=== PATIENT | male | born 1985 | race Caucasian/White ===

== ENCOUNTER 2017-10-04 20:06 | Emergency (ER) | payer OTHER, SELFPAY ==
[2017-10-04 20:08] VITALS: BP 150/104; PULSE 93; RESP 17; TEMP 36.8; O2SAT 99; BMI 40.0
--- NOTE | 2017-10-04 22:00 | ED.VISSUMM ---
- ER Visit Summary Date of Service: 10/04/17 Chief Complaint: Right calf pain History of Present Illness: The patient is a 32 M 1 week ago was lifting a cabinet at work with 2 other men when the weight shifted on him and he felt pain in his right calf. Said basically walked off and felt better but now it has been sore since that time and is developed a bruise in his right posterior calf. He has no history of DVT or PE. He has had no recent travel, surgery or mobilization. No chest pain or shortness of breath. He does not smoke. There is no family history of blood clots. He states it hurts more to walk on. He has never had any surgery to his right lower extremity. Physical Examination: Well-appearing young male. Vital signs are stable afebrile. HEENT exam unremarkable. Neck nontender. Lungs good auscultation bilaterally. Heart regular rate and rhythm no murmur. Abdomen soft nontender. He is moving all 4 extremities. Neurovascular intact. His right medial midcalf as a bruise approximately 3 x 4. It is mildly tender to palpation is minimal swelling. He has a strong DP pulse. There are no cords. His right foot is neurovascularly intact he has full dorsi plantarflexion. He is able to wiggle his toes. Normal sensation. There is no signs of compartment. His Achilles tendon is intact. He has full range of motion to his right hip, knee and right ankle. Test Results: None Emergency Department Course and Treatment: Patient's history and exam are consistent with a right calf strain or partial tear with hematoma. He has no bony tenderness. He is able to ambulate without difficulty. He has no risk factors for DVT. Treatment Plan: Crutches for nonweightbearing. Ice and elevate. Motrin for pain. Light activity at work. [employer] pro was here and he can evaluate him in follow-up also. Disposition: Discharge Impression: Acute right calf strain with hematoma Worker's comp injury This note was generated with [employer] dictation software. It may contain incorrect words, spelling, and punctuation that were not noted in review of the chart prior to signing ED Disposition - Plan for ED Patient: Chief Complaint: Lower Extremity Injury Referrals: Gavin Ashraf MD [Primary Care Provider] -
--- NOTE | 2017-10-04 22:05 | ED.DEP ---
ED Disposition - Plan for ED Patient: Disposition: Home or Assisted Living Chief Complaint: Lower Extremity Injury Instructions: ED Strain Muscle Ext, ED Hematoma Referrals: HARRISON TERRY [GROUP OF PHYSICIANS] - 1 Week Additional Instructions: Ice and elevate right leg. You have a right calf strain there could even be a partial tear. The bruising is from a collection of blood clot hematoma. You need to test the right calf muscle in order for it to heal. Most likely this will take weeks or longer to heal. Motrin for pain and swelling.
[2017-10-04 23:00] VITALS: BP 131/80; PULSE 89; RESP 16; O2SAT 98
== END 2017-10-04 23:24 | disposition home or self-care (01) ==
LOC: ED 22:39
PROVIDERS: Emergency Provider Emergency Medicine; Family Provider Internal Medicine; PCP Internal Medicine
DX: S80.11XA Contusion of right lower leg, initial encounter (principal); S86.111A Strain of other muscle(s) and tendon(s) of posterior muscle group at lower leg level, right leg, initial encounter; I10 Essential (primary) hypertension; G47.30 Sleep apnea, unspecified; Z72.0 Tobacco use; Z79.899 Other long term (current) drug therapy; X50.0XXA Overexertion from strenuous movement or load, initial encounter; Y93.89 Activity, other specified; Y92.89 Other specified places as the place of occurrence of the external cause; Y99.0 Civilian activity done for income or pay
CPT/HCPCS: 99283

== ENCOUNTER 2021-09-01 19:00 | Emergency (ER) | payer BC, SELFPAY ==
[2021-09-01 19:01] VITALS: BP 163/87; PULSE 78; RESP 16; TEMP 36.2; O2SAT 100; BMI 40.6
[2021-09-01 19:25] LABS: Absolute Lymphocyte Count 2.11 X10^3/uL (0.83-4.51); Absolute Neutrophil Count 3.3 X10^3/uL (2.0-7.7); Basophil# 0.07 X10^3/uL; Basophil% 1.1 % (0-1); Eosinophil# 0.26 X10^3/uL; Eosinophils% 4.1 % (0-5); Hematocrit 41.7 % (40-54); Hemoglobin 13.3 g/dL (13.0-16.5); Lymphocyte # 2.11 X10^3/ul (0.83-4.51); Lymphocyte % 33.4 % (19-41); Mean Corp Hgb Conc 31.9 g/dL (32-36); Mean Corpuscular Hgb 28.9 pg (27.0-32.0); Mean Corpuscular Volume 90.7 fL (80-94); Mean Platelet Vol. 10.1 fl (6.2-12.0); Monocyte# 0.59 X10^3/uL; Monocyte% 9.3 % (0-10); NRBC Flagged by Analyzer 0 % (0-5); Neutrophil # 3.28 X10^3/uL (2.7-7.7); Neutrophil % 51.9 % (47-70); Platelet Count 260 K/mm3 (150-450); RBC Distribution Width CV 12.9 % (11.6-14.6); RBC Distribution Width SD 42.1 fl (35.1-43.9); White Blood Count 6.3 K/mm3 (4.4-11.0)
[2021-09-01 19:49] LABS: Anion Gap 5 (5-15); BUN 18 mg/dL (7-18); BUN/Creat Ratio 20.7 RATIO (10-20); Calcium,Total 8.7 mg/dL (8.5-10.1); Chloride 107 mmol/L (98-107); Creatinine, Serum 0.87 mg/dL (0.70-1.30); EST Glomerular Filtration Rate 104 mL/min (>60); Est Glom Filt Rate - Afr Amer 126 mL/min (>60); Estimated Creatinine Clearance 133.85 ml/min; Glucose 107 mg/dL (74-106); Sodium Level 140 mmol/L (136-145)
[2021-09-01 20:39] VITALS: BP 138/78; PULSE 88; RESP 16; TEMP 36.9; O2SAT 98
[2021-09-01 20:40] LABS: Bacteria 0 SEEN /hpf (None Seen); Mucous, Urine 0 SEEN /hpf (<or=2+); Red Blood Cells-Urine 0 SEEN /hpf (0-5); White Blood Cells 0 SEEN /hpf (0-5)
[2021-09-01 20:51] LABS: Color, Urine Yellow (Yellow); Glucose, Dipstick Normal (Normal); Ketone-Dipstick Negative (Negative); Leukocyte Esterase-Dipstick Negative /ul (Negative); Nitrite-Dipstick Negative (Negative); Occult Blood-Urine Negative /ul (Negative); Protein-Dipstick Negative (Negative); Specific Gravity, Urine 1.015 (1.002-1.030); Urine Bilirubin Dipstick Negative (Negative); Urine Clarity Sl. Cloudy (Clear); Urine Urobilinogen Normal (Normal)
[2021-09-01 20:57] LABS: Squamous Epithelial Cells - UA 0-5 SEEN /hpf (0-5)
[2021-09-01] MEDS: 0.9% Normal Saline 1,000 ML 1000 ML IV (22:11)
[2021-09-01] MEDS: Morphine 4 MG/ML Syringe IV (22:11)
[2021-09-01] MEDS: Ondansetron 4 MG/2 ML Vial IV (22:11)
[2021-09-01 22:37] VITALS: BP 136/74; PULSE 74; RESP 16; O2SAT 98
--- NOTE | 2021-09-02 00:17 | ED.VIS.GI ---
HPI HPI - GI History of Present Illness Chief Complaint: Abd Pain Informant: patient Abdominal Pain/Flank Pain Onset: Today Context: Sudden Onset Timing: Intermittent Quality: Stabbing Location: LUQ Worsened by: Food Relieved by: Nothing Nausea/Vomiting/Emesis GI Symptom: Positive for Nausea; Negative for Vomiting Diarrhea/Melena/Hematochezia GI Symptom: Positive for Diarrhea; Negative for Melena and Hematochezia Stool Quality: Positive for Watery Associated Symptoms Associated Symptoms: Negative for Dysuria, Frequency and Hematuria Narrative Narrative: Patient presents with left upper quadrant abdominal pain that became worse again today. Patient states it began approximately 1 hour after eating. Patient states it is localized to the left upper quadrant. Patient describes it as stabbing. Patient states it comes and goes. Patient admits to nausea but denies any vomiting. Patient admits to some diarrhea but denies any melena or hematochezia. Patient denies any dysuria, hematuria, or urinary frequency. PFSH PFS Medical History A-fib Diverticulitis HTN (hypertension) Sleep apnea Home Medications metoprolol succinate 50 mg PO DAILY #7 tablet 09/04/15 [Rx Last Taken Unknown] famotidine 20 mg PO BID #28 tablet 09/02/21 [Rx Last Taken Unknown] Allergy/AdvReac Type Severity Reaction Status Date / Time lansoprazole [From Prevacid] AdvReac Abd Verified 09/01/21 19:02 cramps/diarrhea Surgical History H/O cardiac radiofrequency ablation History of tonsillectomy Social History Smoking Status: Light Smoker (<10/day) ROS ROS ED Constitutional Constitutional ED: Denies chills or fever(s) Eyes Eyes: Denies blurry vision or change in vision ENT ENT ED: Denies rhinorrhea or sore throat Cardiovascular Cardiovascular: Denies chest pain or palpitations Respiratory/Chest Respiratory/Chest: Denies cough or dyspnea Gastrointestinal Gastrointestinal: Reports abdominal pain, diarrhea and nausea; Denies vomiting Genitourinary Genitourinary ED: Denies dysuria or hematuria Musculoskeletal Musculoskeletal: Denies back pain or neck pain Integumentary Denies abscess or rash Neurologic Neurologic: Denies headache(s) or weakness Allergic/Immunologic Allergic/Immunologic ED: Denies mouth swelling or urticaria EXAM Physical Exam Const Vital Signs: 09/01/21 19:01 09/01/21 20:39 09/01/21 22:37 Temperature 97.1 F L 98.4 F Temperature Source Temporal Temporal Pulse Rate 78 88 74 Respiratory Rate 16 16 16 Blood Pressure 163/87 H 138/78 H 136/74 H Blood Pressure Mean 112 98 94 Pulse Ox 100 98 98 Oxygen Delivery Method Room Air Room Air Room Air 09/02/21 00:46 Temperature Temperature Source Pulse Rate 76 Respiratory Rate 22 H Blood Pressure Blood Pressure Mean Pulse Ox 96 Oxygen Delivery Method Room Air Positive well nourished, well developed and obese General Appearance ED: well developed and NAD Nutritional Appearance: obese HEENT Reports moist mucous membranes Neck supple and no JVD Resp normal respiratory effort and clear to auscultation bilaterally Cardio regular rate, regular rhythm and no murmurs GI normal to inspection, nondistended, normoactive bowel sounds Palpation: soft and tender LUQ; Negative for guarding or rebound tenderness present Extremity normal to inspection General Extremety ED: Negative for edema or tenderness General Extremity: Negative for edema Neuro oriented x3, CN's II-XII intact bilaterally and no sensory deficits noted Sensorium / Orientation: alert Motor Exam: strength 5/5 throughout Psych mental status grossly normal Skin no rashes or lesions noted MDM MDM MDM Narrative Medical decision making narrative: Patient was given IV fluids, morphine, and Zofran. CBC was within normal limits. Basic metabolic profile was essentially within normal limits. Urinalysis does not show any evidence of urinary tract infection. CT scan of the abdomen pelvis was obtained. There is no acute abnormality noted. This was interpreted by the radiologist and reviewed by myself. Patient was given a prescription for Pepcid. Patient was instructed to follow-up with his primary care physician in 5 to 7 days. Patient understood and was agreeable with the plan. All questions were answered. Lab Data Attestation: I reviewed the patient's lab results. Labs: Laboratory Results - last 24 hr 09/01/21 09/01/21 09/01/21 19:10 19:10 20:40 WBC 6.3 RBC 4.60 Hgb 13.3 Hct 41.7 MCV 90.7 MCH 28.9 MCHC 31.9 L RDW Std Deviation 42.1 RDW Coeff of Juanjo 12.9 Plt Count 260 MPV 10.1 Immature Gran % (Auto) 0.200 Neut % (Auto) 51.9 Lymph % (Auto) 33.4 Josephine % (Auto) 9.3 Eos % (Auto) 4.1 Baso % (Auto) 1.1 H Absolute Neuts (auto) 3.3 Absolute Lymphs (auto) 2.11 Nucleated RBC % 0 Sodium 140 Potassium 4.0 Chloride 107 Carbon Dioxide 28.0 Anion Gap 5 BUN 18 Creatinine 0.87 Estim Creat Clear Calc 133.85 Est GFR (MDRD) Af Amer 126 Est GFR (MDRD) Non-Af 104 BUN/Creatinine Ratio 20.7 H Glucose 107 H Calcium 8.7 Urine Color Yellow Urine Clarity Sl. Cloudy Urine pH 7.0 Ur Specific [place] 1.015 Urine Protein Negative Urine Glucose (UA) Normal Urine Ketones Negative Urine Occult Blood Negative Urine Nitrite Negative Urine Bilirubin Negative Urine Urobilinogen Normal Ur Leukocyte Esterase Negative Urine RBC 0 SEEN Urine WBC 0 SEEN Ur Squamous Epith Cells 0-5 SEEN Urine Bacteria 0 SEEN Urine Mucus 0 SEEN Radiography Diagnostic Testing: Clinical Impression(s) from Imaging Studies Abdomen/Pelvis CT 09/02/21 22:00 IMPRESSION: No acute findings. Scattered sigmoid colon diverticula, no diverticulitis. Electronically Signed: Bi Costello MD at 0:53 EST Reading Location ID and State: [address] [place] [address] Tel , Service support , Discharge Plan Triage Chief Complaint: Abd Pain ED Provider: Merrick Morelos Dx/Rx/DC Orders Clinical Impression: Left upper quadrant abdominal pain of unknown etiology Instructions: ED Abdominal Pain Unkn Cause Male... Prescriptions: New famotidine [famotidine] 20 MG tablet 20 mg PO BID Qty: 28 RF: 0 No Action metoprolol succinate 50 MG tablet 50 mg PO DAILY Qty: 7 RF: 0 Primary Care Provider: Gavin Ashraf Referrals: Gavin Ashraf MD [Primary Care Provider] - 3-5 Days Disposition Disposition: Home, Self Care
[2021-09-02 00:46] VITALS: PULSE 76; RESP 22; O2SAT 96
--- NOTE | 2021-09-02 01:27 | ED.RN ---
pt c/o pain suddenly increased. dr carter aware and to look over and assess.
--- NOTE | 2021-09-02 22:00 | CT_ITS ---
STUDY: CT ABDOMEN AND PELVIS WITH CONTRAST REASON FOR EXAM: Male, 36 years old. Left upper quadrant pain. Nausea and diarrhea and chills. TECHNIQUE: IV Contrast: 100 mL ISOVUE 300 Enteric contrast: GASTROGRAFIN Enteric contrast was administered. Axial images obtained. Coronal and sagittal reformatted images provided. Individualized dose optimization techniques were used for this CT. COMPARISON: 04/21/2013 CT abdomen pelvis. FINDINGS: Partially visualized lower chest: Lung bases unremarkable. Liver: No concerning lesions. Gallbladder and biliary tree: No visible gallstones. No pericholecystic inflammation. No biliary ductal dilation. Pancreas: No pancreatic lesions or inflammation. Spleen: Normal size, no splenic lesions. Adrenal glands: No concerning masses. Kidneys and ureters: No hydronephrosis or renal stones. No concerning masses. No ureteral dilation. Bowel: Normal appendix. No obstruction or inflammation of the bowel. Scattered sigmoid colon diverticula, no diverticulitis. Urinary bladder: No stones or wall thickening. Reproductive:Normal size prostate. Vascular: No abdominal aortic aneurysm. Retroperitoneal and peritoneal spaces: No ascites or free air. No retroperitoneal lesions. Osseous: No acute osseous abnormality. Abdominal and pelvic wall: No concerning findings. Any findings described in the findings sections and not included in the impression are incidental and do not require imaging follow-up. CT/Abdomen/Pelvis WITH Contrast IMPRESSION: No acute findings. Scattered sigmoid colon diverticula, no diverticulitis. Electronically Signed: Bi Costello MD at 0:53 EST Reading Location ID and State: [facility] / [place] Tel , Service support ,
== END 2021-09-02 01:37 | disposition home or self-care (01) ==
PROVIDERS: Emergency Provider Emergency Medicine; PCP Internal Medicine; Visit Provider Emergency Medicine
DX: R10.12 Left upper quadrant pain (principal); F17.200 Nicotine dependence, unspecified, uncomplicated; G47.30 Sleep apnea, unspecified; E66.9 Obesity, unspecified
CPT/HCPCS: 74177; 80048; 81001; 85025; 96361; 96374; 96375; 99283; J7030; Q9967; A4216; J2405

== ENCOUNTER 2021-09-08 15:06 | Emergency (ER) | payer BC, SELFPAY ==
[2021-09-08 15:07] VITALS: BP 157/84; PULSE 71; RESP 22; TEMP 35.8; O2SAT 98; BMI 39.1
[2021-09-08 15:09] VITALS: BP 157/84; PULSE 75; RESP 22; TEMP 35.8; O2SAT 98
--- NOTE | 2021-09-08 16:59 | CT_ITS ---
EXAM: CT ABDOMEN AND PELVIS WITHOUT INTRAVENOUS CONTRAST CLINICAL INDICATION: Abdominal pain. TECHNIQUE: Helically acquired images were obtained of the abdomen and pelvis without intravenous contrast. This CT exam was performed using one or more of the following dose reduction techniques: automated exposure control, adjustment of the mA and/or kV according to patient size, and/or use of iterative reconstruction technique. This report was created using [employer] report generation technology. COMPARISON: CT abdomen and pelvis with contrast 09/01/2021. FINDINGS: LOWER THORAX: Unremarkable. Lung bases are clear. No cardiomegaly. No significant pericardial effusion. ABDOMEN: LIVER: Unremarkable. Homogeneous. GALLBLADDER AND BILE DUCTS: Unremarkable. No calcified gallstones. No gallbladder distention or wall edema. No intra- or extrahepatic biliary ductal dilation. PANCREAS: Unremarkable. No focal cystic mass. SPLEEN: Unremarkable. Normal size without focal cystic or solid mass. ADRENALS: Unremarkable. No nodules. KIDNEYS AND URETERS: Unremarkable. Normal renal size and position. No hydronephrosis. STOMACH AND BOWEL: Few diverticula in the sigmoid colon without diverticulitis. No stomach or bowel distention. PELVIS: APPENDIX: Normal. BLADDER: Mild thickening of the underdistended urinary bladder wall. REPRODUCTIVE: Unremarkable as visualized. No mass. ABDOMEN and PELVIS: INTRAPERITONEAL SPACE: Unremarkable. No ascites or other fluid collection. No free air. BONES/JOINTS: Old anterior wedge compression fractures involving T10 and T11 vertebral bodies are unchanged. No suspicious lytic or blastic abnormality. SOFT TISSUES: Unremarkable. No discrete abdominal or pelvic wall hernia. VASCULATURE: Unremarkable. Abdominal aorta is non-dilated. LYMPH NODES: Unremarkable. No enlarged lymph nodes. CT/Abdomen/Pelvis without Cont IMPRESSION: 1. No acute findings in the abdomen or pelvis. 2. A few sigmoid diverticulosis without diverticulitis. 3. No significant interval change when compared to 09/01/2021. Electronically Signed: Geoffrey Nielsen MD at 18:08 EST ,
--- NOTE | 2021-09-08 17:04 | EX.ED.DYSGE1 ---
HPI History of Present Illness Chief Complaint: Flank Pain Informant: patient Onset/Context/Timing Onset: Today Context: Sudden Onset Timing: Continuous Quality: Throbbing, cramping Location: Left flank Worsened by: Eating Relieved by: Nothing Narrative Narrative: Patient presents with left flank pain that began today. Patient states it began today while he was at work. Patient describes the pain as throbbing. Patient states it is occasional cramping. Patient states it is localized to the left flank area. Patient states it did get worse after eating breakfast this morning. Patient states the pain is been constant. Patient admits to some diarrhea. Patient denies any nausea or vomiting. Patient denies any dysuria or hematuria. Patient denies any fevers or chills. [facility] Medical History A-fib Diverticulitis HTN (hypertension) Sleep apnea Home Medications famotidine 20 mg PO BID #28 tablet 09/02/21 [Rx Last Taken Unknown] sertraline 100 mg PO BID 09/08/21 [History Last Taken Unknown] Allergy/AdvReac Type Severity Reaction Status Date / Time lansoprazole [From Prevacid] AdvReac Abd Verified 09/01/21 19:02 cramps/diarrhea Surgical History H/O cardiac radiofrequency ablation History of tonsillectomy Social History Smoking Status: Never smoker ROS ROS ED Constitutional Constitutional ED: Denies chills or fever(s) Eyes Eyes: Denies blurry vision or change in vision ENT ENT ED: Reports rhinorrhea; Denies sore throat Cardiovascular Cardiovascular: Denies chest pain or palpitations Respiratory/Chest Respiratory/Chest: Denies cough or dyspnea Gastrointestinal Gastrointestinal: Reports diarrhea; Denies nausea or vomiting Genitourinary Genitourinary ED: Denies dysuria or hematuria Musculoskeletal Musculoskeletal: Reports back pain; Denies neck pain Integumentary Denies abscess or rash Neurologic Neurologic: Denies headache(s) or weakness Allergic/Immunologic Allergic/Immunologic ED: Denies mouth swelling or urticaria EXAM Physical Exam Const Vital Signs: 09/08/21 15:07 09/08/21 15:09 09/08/21 17:28 Temperature 96.4 F L 96.4 F L Temperature Source Temporal Temporal Pulse Rate 71 75 Respiratory Rate 22 H 22 H 16 Blood Pressure 157/84 H 157/84 H Blood Pressure Mean 108 108 Pulse Ox 98 98 Oxygen Delivery Method Room Air Room Air Positive well nourished, well developed and obese General Appearance ED: well developed and NAD Nutritional Appearance: obese HEENT Reports moist mucous membranes Neck supple and no JVD Resp normal respiratory effort and clear to auscultation bilaterally Cardio regular rate, regular rhythm and no murmurs GI normal to inspection, nondistended, normoactive bowel sounds Palpation: soft and tender LLQ and LUQ; Negative for guarding or rebound tenderness present Extremity normal to inspection General Extremety ED: Negative for edema or tenderness General Extremity: Negative for edema Neuro oriented x3, CN's II-XII intact bilaterally and no sensory deficits noted Sensorium / Orientation: alert Motor Exam: strength 5/5 throughout Psych mental status grossly normal Skin no rashes or lesions noted MDM MDM MDM Narrative Medical decision making narrative: Patient was given IV fluids, Toradol, and Zofran. CBC was within normal limits. Comprehensive metabolic profile was within normal limits. Lipase was normal. Urinalysis was within normal limits. CT scan of the abdomen and pelvis was obtained. There is no acute process noted. There is some diverticulosis but there is no diverticulitis. This was interpreted by the radiologist and reviewed by myself. Patient was advised of his findings. Patient was instructed to follow-up with his primary care physician in 3 to 5 days for further evaluation. Patient understood and was agreeable with the plan. All questions were answered. Lab Data Attestation: I reviewed the patient's lab results. Labs: Laboratory Results - last 24 hr 09/08/21 09/08/21 09/08/21 17:30 17:30 17:45 WBC 6.6 RBC 4.68 Hgb 13.5 Hct 41.8 MCV 89.3 MCH 28.8 MCHC 32.3 RDW Std Deviation 42.1 RDW Coeff of Juanjo 12.9 Plt Count 262 MPV 10.0 Immature Gran % (Auto) 0.200 Neut % (Auto) 57.8 Lymph % (Auto) 29.0 [place] % (Auto) 7.7 Eos % (Auto) 4.5 Baso % (Auto) 0.8 Absolute Neuts (auto) 3.8 Absolute Lymphs (auto) 1.92 Nucleated RBC % 0 Sodium 138 Potassium 3.5 Chloride 107 Carbon Dioxide 26.0 Anion Gap 5 BUN 13 Creatinine 0.78 Estim Creat Clear Calc 153.47 Est GFR (MDRD) Af Amer 143 Est GFR (MDRD) Non-Af 118 BUN/Creatinine Ratio 16.6 Glucose 92 Calcium 9.0 Total Bilirubin 0.40 AST 13 L ALT 20 Alkaline Phosphatase 82 Total Protein 7.9 Albumin 4.0 Globulin 3.9 Albumin/Globulin Ratio 1.0 Lipase 153 Urine Color Yellow Urine Clarity Clear Urine pH 7.0 Ur Specific [place] 1.010 Urine Protein Negative Urine Glucose (UA) Normal Urine Ketones Negative Urine Occult Blood Negative Urine Nitrite Negative Urine Bilirubin Negative Urine Urobilinogen Normal Ur Leukocyte Esterase Negative Urine RBC 0 SEEN Urine WBC 0 SEEN Ur Squamous Epith Cells 0 SEEN Urine Bacteria 0 SEEN Urine Mucus 0 SEEN Radiography Diagnostic Testing: Clinical Impression(s) from Imaging Studies Abdomen/Pelvis CT 09/08/21 16:59 IMPRESSION: 1. No acute findings in the abdomen or pelvis. 2. A few sigmoid diverticulosis without diverticulitis. 3. No significant interval change when compared to 09/01/2021. Electronically Signed: Geoffrey Nielsen MD at 18:08 EST , Discharge Plan Triage Chief Complaint: Flank Pain ED Provider: Merrick Morelos Dx/Rx/DC Orders Clinical Impression: Abdominal pain of unknown etiology Instructions: ED Abdominal Pain Unkn Cause Male... Prescriptions: No Action famotidine [famotidine] 20 MG tablet 20 mg PO BID Qty: 28 RF: 0 sertraline 100 mg tablet 100 mg PO BID RF: 0 Primary Care Provider: Gavin Ashraf Referrals: Gavin Ashraf MD [Primary Care Provider] - 3-5 Days Disposition Disposition: Home, Self Care
[2021-09-08] MEDS: 0.9% Normal Saline 1,000 ML 1000 ML IV (17:27)
[2021-09-08] MEDS: Ondansetron 4 MG/2 ML Vial IV (17:27)
[2021-09-08 17:28] VITALS: RESP 16
[2021-09-08 17:43] LABS: Absolute Lymphocyte Count 1.92 X10^3/uL (0.83-4.51); Absolute Neutrophil Count 3.8 X10^3/uL (2.0-7.7); Basophil# 0.05 X10^3/uL; Basophil% 0.8 % (0-1); Eosinophils% 4.5 % (0-5); Hematocrit 41.8 % (40-54); Hemoglobin 13.5 g/dL (13.0-16.5); Lymphocyte # 1.92 X10^3/ul (0.83-4.51); Mean Corp Hgb Conc 32.3 g/dL (32-36); Mean Corpuscular Hgb 28.8 pg (27.0-32.0); Mean Corpuscular Volume 89.3 fL (80-94); Monocyte# 0.51 X10^3/uL; Monocyte% 7.7 % (0-10); NRBC Flagged by Analyzer 0 % (0-5); Neutrophil # 3.83 X10^3/uL (2.7-7.7); Neutrophil % 57.8 % (47-70); Platelet Count 262 K/mm3 (150-450); RBC Distribution Width CV 12.9 % (11.6-14.6); RBC Distribution Width SD 42.1 fl (35.1-43.9); Red Blood Count 4.68 M/mm3 (4.6-6.2); White Blood Count 6.6 K/mm3 (4.4-11.0)
[2021-09-08 17:58] LABS: Bacteria 0 SEEN /hpf (None Seen); Mucous, Urine 0 SEEN /hpf (<or=2+); Red Blood Cells-Urine 0 SEEN /hpf (0-5); Squamous Epithelial Cells - UA 0 SEEN /hpf (0-5); White Blood Cells 0 SEEN /hpf (0-5)
[2021-09-08] MEDS: Ketorolac 30 MG/ML Syringe IV (17:59)
[2021-09-08 18:00] LABS: Color, Urine Yellow (Yellow); Glucose, Dipstick Normal (Normal); Ketone-Dipstick Negative (Negative); Leukocyte Esterase-Dipstick Negative /ul (Negative); Nitrite-Dipstick Negative (Negative); Occult Blood-Urine Negative /ul (Negative); Protein-Dipstick Negative (Negative); Urine Bilirubin Dipstick Negative (Negative); Urine Clarity Clear (Clear); Urine Urobilinogen Normal (Normal)
[2021-09-08 18:03] LABS: AST(SGOT) 13 U/L (15-37); Alanine Aminotransfer ALT/SGPT 20 U/L (16-61); Alkaline Phosphatase 82 U/L (45-117); Anion Gap 5 (5-15); BUN 13 mg/dL (7-18); BUN/Creat Ratio 16.6 RATIO (10-20); Chloride 107 mmol/L (98-107); Creatinine, Serum 0.78 mg/dL (0.70-1.30); EST Glomerular Filtration Rate 118 mL/min (>60); Est Glom Filt Rate - Afr Amer 143 mL/min (>60); Estimated Creatinine Clearance 153.47 ml/min; Globulin 3.9 g/dL (2.2-4.2); Glucose 92 mg/dL (74-106); Lipase 153 U/L (73-393); Potassium 3.5 mmol/L (3.5-5.1); Protein, Total 7.9 g/dL (6.4-8.2); Sodium Level 138 mmol/L (136-145)
[2021-09-08 19:44] VITALS: RESP 16
== END 2021-09-08 19:44 | disposition home or self-care (01) ==
PROVIDERS: Emergency Provider Emergency Medicine; PCP Internal Medicine; Visit Provider Emergency Medicine
DX: R10.9 Unspecified abdominal pain (principal); R19.7 Diarrhea, unspecified; G47.30 Sleep apnea, unspecified; E66.9 Obesity, unspecified; Z79.899 Other long term (current) drug therapy
CPT/HCPCS: 74176; 80053; 81001; 83690; 85025; 96361; 96374; 96375; 99284; J7030; A4216; J2405

== ENCOUNTER → 2022-11-26 | Outpatient (CLI) | payer BC, SELFPAY ==
[2022-11-26 11:21] LABS: D-Dimer Quantitative (DVT/PE) 0.27 FEU/ug/m (0.27-0.49)
== END | disposition home or self-care (01) ==
LOC: LABSPEC 11:02
PROVIDERS: PCP Internal Medicine; Referring Provider Nurse Practitioner; Visit Provider Nurse Practitioner
DX: R07.9 Chest pain, unspecified (principal)
CPT/HCPCS: 85379